=== PATIENT | female | born 2000 | race Caucasian/White ===

== ENCOUNTER 2024-12-11 13:31 | Emergency (ER) | payer BC, MEDICAID, SELFPAY ==
[2024-12-11 13:32] VITALS: BMI 20.9
[2024-12-11 13:41] VITALS: BP 140/86; PULSE 101; RESP 18; TEMP 36.7; O2SAT 100
--- NOTE | 2024-12-11 13:55 | XR_ITS ---
Examination: CT abdomen and pelvis without contrast. Coronal 3-D reconstructions. Sagittal 2-D reconstructions. Date and time of exam: December 11, 2024, 1610 hours INDICATIONS: Pelvic pain lower abdominal cramping with nausea beginning 4 days ago CTDI: vol (mGy): 5.32 DLP: (mGycm): 291 Technique: Axial images of the abdomen have been obtained, 3 mm slice thickness Intravenous contrast material has not been administered. Low dose protocols were performed. One or more of the following dose reduction techniques were used; automated exposure control, adjustment of the mA and/or KV according to patient size, use of iterative reconstruction technique. Findings: No visualized liver or splenic lesion Contracted gallbladder No pancreatic or adrenal mass 3 mm nonobstructing left renal calculus, no hydronephrosis or ureteral calculi Normal appendix No bowel obstruction or diverticulitis Moderate stool in the sigmoid: Anteverted uterus, 27 mm left adnexal cyst Mild free fluid in the pelvis No bladder mass or bladder calculi IMPRESSION: 3 mm nonobstructing left renal calculus, no hydronephrosis or ureteral calculi No CT findings of appendicitis bowel obstruction or diverticulitis No nonspecific colitis pattern on this noncontrast study
--- NOTE | 2024-12-11 13:57 | EDNOTE_ITS ---
ED Abdominal Pain RME/HPI General Chief Complaint: Abdominal Pain Stated complaint: LOWER ABD CRAMPING X4 DAYS WITH NAUSEA Time seen by provider: 12/11/24 13:55 Arrival date/time: 12/11/24 13:31 RME / HPI RME / HPI narrative: 24-year-old patient presents emergency department with complaint of pelvic pain for the past 4 days. Patient rates her pain as a 10 out of 10. She denies possibility of as she states she has been on the Depo shot for the past 1 year. She denies any alleviating or aggravating factors. She denies fever or chills. Related Data Previous Rx's ?Medication ?Instructions ?Recorded ibuprofen 600 mg tablet 600 mg PO Q6H #30 tabs 08/12 docusate calcium 240 mg capsule 240 mg PO QDAY 10 days #10 caps 12/11/24 (Stool Softener (docusate calcium)) Allergies Allergy/AdvReac Type Severity Reaction Status Date / Time fexofenadine (From [facility]) Allergy Severe Swelling Verified 12/11/24 13:34 of Lip/Tongue/Throat latex Allergy Severe Rash Verified 12/11/24 13:34 Review of Systems Review of Systems Systems Reviewed: All systems reviewed, normal except as documented Constitutional Constitutional: Reports system reviewed and no additional complaints, except as documented ENT Ears, Nose, Mouth, and Throat: Reports system reviewed and no additional complaints, except as documented Cardiovascular Cardiovascular: Reports system reviewed and no additional complaints, except as documented Respiratory Respiratory: Reports system reviewed and no additional complaints, except as documented Gastrointestinal Gastrointestinal: Reports system reviewed and no additional complaints, except as documented Genitourinary Genitourinary: Reports system reviewed and no additional complaints, except as documented, Reports amenorrhea, Denies dyspareunia, Denies dysuria, Denies flank pain, Denies genital pruritis, Denies metrorrhagia, Denies vaginal odor and Denies vaginal pruritus Musculoskeletal Musculoskeletal: Reports system reviewed and no additional complaints, except as documented ED Exam General General appearance: Present alert and in no apparent distress Eye Eye exam: Present normal appearance and PERRL Chest Chest inspection: Present normal inspection and symmetric chest wall rise Respiratory Respiratory exam: Present normal lung sounds bilaterally Cardiovascular Cardiovascular exam: Present regular rate and normal rhythm Abdominal Exam Abdominal tenderness: Present suprapubic Neurological Exam Neurological exam: Present alert and oriented X3 Course Quality Measures none Orders Category Date Time Status CT abdomen pelvis wo con Stat Exams 12/11/24 13:55 Completed CBC [CBC] Stat Lab 12/11/24 14:12 Received CMP [Comprehensive Metabolic Panel] Stat Lab 12/11/24 14:12 Completed HCG Qualitative,Urine Stat Lab 12/11/24 14:27 Completed Lipase Stat Lab 12/11/24 14:12 Completed Urinalysis, C/S if Indicated Stat Lab 12/11/24 14:27 Completed HYDROcodone*/APAP 5/325 [[place] 5/325] Med 12/11/24 14:00 Discontinued 1 tab PO X1 ONE Morphine* Inj Med 12/11/24 13:55 Discontinued 4 mg IM X1 ONE Ondansetron Odt [Zofran Odt] Med 12/11/24 13:55 Discontinued 4 mg PO X1 ONE Vital Signs Vital signs: Vital Signs Temperature 98.1 F 12/11/24 13:41 Pulse Rate 101 H 12/11/24 13:41 Respiratory Rate 18 12/11/24 13:41 Blood Pressure 140/86 H 12/11/24 13:41 Pulse Oximetry (%) 100 12/11/24 13:41 Oxygen Delivery Method Room Air 12/11/24 13:41 Abdominal Pain MDM Patient data External records reviewed:: None Clinical information provided by:: patient Social determinants that could affect healthcare access:: none Patient has the following chronic illnesses:: na How is presenting disease/condition affected by chronic disease/condition?: no chronic disease Evaluation data The following diagnostics were reviewed and interpreted by me:: other (specify) Lab and/or radiology exams considered but not ordered:: lab and radiology exams considered and ordered Interpretation Summary: labs unremarkable; CT imaging indicates moderate fecal material in colon Medications / Prescriptions Medications or Prescriptions considered but not ordered:: both considered and ordered Medication administrations:: Medication Administration History Discontinued Medications Hydrocodone Bitart/Acetaminophen (Hydrocodone/[place] 5/325 Tablet) 1 tab PO X1 ONE Stop: 12/11/24 14:01 Last Admin: 12/11/24 14:22 Dose: 1 tab Documented By: Morphine Sulfate (Morphine Sulf Inj 4 Mg/Ml Vial) 4 mg IM X1 ONE Stop: 12/11/24 13:56 Last Admin: 12/11/24 13:35 Dose: Not Given Documented By: Non-Admin Reason: Cancelled by Provider Ondansetron HCl (Ondansetron Odt 4 Mg Tabrap) 4 mg PO X1 ONE; Protocol Stop: 12/11/24 13:56 Last Admin: 12/11/24 14:22 Dose: 4 mg Documented By: per above Consultations Consultation(s) initiated? (list below): No Diagnosis Differential diagnosis abdominal pain: abdominal pain Most likely diagnosis given after review of the tests above:: constipation Admission Indicated Admission indicated?: not indicated Explain why admission is indicated or not indicated:: na Admission Request Was there a request for admission?: No Disposition Plan Disposition Plan: Discharge Discharge Attestation Discharge Attestation: The patient and all family members were given an opportunity to ask questions and understood the discharge instructions. Discharge instructions specifically effects, indications for sooner follow up or return to the emergency department, and the expected course of current diagnosis. Patient condition: Stable Discharge Plan Plan Patient Disposition: HOME (Self Care) Prescriptions/Referrals Prescriptions/Med Rec: New docusate calcium [Stool Softener (docusate chapito)] 240 mg capsule 240 mg PO QDAY 10 Days Qty: 10 0RF No Action ibuprofen 600 mg tablet 600 mg PO Q6H Qty: 30 0RF Referrals: Jordyn Keita PA-C [Primary Care Provider] - In 1 week Problem List Clinical Impression: Abdominal pain, Constipation Patient/Caregiver Discharge Instructions Education Materials: Abdominal Pain, ED Constipation (Adult) Print Language: Citizen Of [place] Stand Alone Forms: [facility]imee Award Info., Patient Portal Info Letter
[2024-12-11] MEDS: HYDROcodone/APAP 5/325 TABLET 1 TAB PO (14:22)
[2024-12-11] MEDS: ONDANSETRON ODT 4 MG TABRAP PO (14:22)
[2024-12-11 14:45] LABS: Collection Type, Urine Voided
[2024-12-11 14:48] LABS: Bilirubin,Urine Negative (Negative); Blood,Urine Negative (Negative); Clarity,Urine Clear (Clear/Hazy); Color,Urine Colorless (Lt Yel-Yel); Culture Indicated,Urine Not Indicated; Glucose, Urine Negative (Negative); HCG Qualitative,Urine Negative; Ketones,Urine Negative (Negative); Leukocyte Esterase,Urine Negative (Negative); Nitrite,Urine Negative (Negative); PH,Urine 6.5 (5.0-7.0); Protein,Urine Negative (Neg - Trace); RBC,Urine 1 /hpf (0-3); Specific Gravity,Urine 1.007 (1.001-1.035); Squamous Epithelial Cell,Urine 3 /hpf (0-5); Urobilinogen,Urine Negative mg/dL (0.0-1.0); WBC,Urine 1 /hpf (0-5)
[2024-12-11 14:55] LABS: Alanine Aminotransferase 14 U/L (10-49); Albumin, Serum 4.6 gm/dL (3.5-5.0); Albumin/Globulin Ratio 2.1 (1.2-2.2); Alkaline Phosphatase 48 U/L (46-116); Anion Gap 10 (7-16); Aspartate Amino Transferase 19 U/L (0-34); BUN/Creatinine Ratio 8 Ratio (12-20); Bilirubin,Total 0.4 mg/dL (0.3-1.2); Blood Urea Nitrogen 6 mg/dL (9-23); Calcium 9.3 mg/dL (8.3-10.6); Calcium (Corrected) 9.3 mg/dL (8.5-10.1); Carbon Dioxide 25.7 mMol/L (20.0-31.0); Chloride 109 mMol/L (98-107); Creatinine (Component) 0.8 mg/dL (0.6-1.3); Estimated Creatinine Clearance 102.7 mL/min (>60); Globulin 2.2 gm/dL (2.3-3.5); Glucose 81 mg/dL (74-106); Lipase 29 U/L (12-53); Osmolality,Calculated 285 (275-295); Potassium 3.8 mMol/L (3.4-5.1); Sodium 145 mMol/L (136-145); Total Protein 6.8 gm/dL (5.7-8.2); eGFR > 60 See Note
[2024-12-11 16:24] LABS: Basophils # (Auto) 0.1 Thou/mm3 (0.0-0.2); Basophils % (Auto) 1 % (0-2.5); Eosinophils # (Auto) 0.5 Thou/mm3 (0.0-0.5); Eosinophils % (Auto) 6 % (0-10); Hematocrit 42.3 % (36.0-46.0); Hemoglobin 13.9 g/dL (12.0-16.0); Immature Granulocytes Auto 0.02 Thou/mm3 (0.00-0.00); Lymphocytes # (Auto) 3.4 Thou/mm3 (1.0-4.8); Lymphocytes % (Auto) 38 % (10-50); Mean Corpuscular HGB Conc 32.9 g/dl (31.0-37.0); Mean Corpuscular Hemoglobin 30.4 pg (25.0-35.0); Mean Corpuscular Volume 93 fL (80-100); Monocytes # (Auto) 0.9 Thou/mm3 (0.0-0.8); Monocytes % (Auto) 10 % (0-12); Neutrophils # (Auto) 4.0 Thou/mm3 (1.8-7.7); Neutrophils % (Auto) 45 % (37-80); Nucleated Red Blood Cell # 0.00 Thou/mm3 (0.00-0.00); Nucleated Red Blood Cell % 0 /100 WBC (0); Platelet Count 277 Thou/mm3 (140-440); RDW Standard Deviation 42.5 fL (36.4-46.3); Red Blood Count 4.57 Miln/mm3 (4.00-5.20); White Blood Count 9.0 Thou/mm3 (3.6-11.0)
[2024-12-11] MEDS: MAGNESIUM CITRATE 300 ML BTL PO (17:11)
== END 2024-12-11 17:12 | disposition home or self-care (01) ==
PROVIDERS: Physician Assistant; Emergency Provider Emergency Medicine; PCP Physician Assistant Medical
DX: K59.00 Constipation, unspecified (principal)
CPT/HCPCS: 36415; 74176; 80053; 81001; 81025; 83690; 85025; 99283; Q0162; A9270